=== PATIENT | male | born 1955 | race Caucasian/White ===

== ENCOUNTER → 2020-11-28 10:29 | Outpatient (BNVA) | payer OTHER, MEDICARE, SELFPAY | PROVIDERS: PCP Internal Medicine; Visit Provider Surgery ==

== ENCOUNTER 2020-12-06 06:10 | Day surgery (SDC) | payer OTHER, MEDICARE, SELFPAY ==
[2020-12-05 09:29] VITALS: BMI 23.3
[2020-12-06 06:26] VITALS: BP 146/80; PULSE 68; RESP 16; TEMP 37.2; O2SAT 98
[2020-12-06] MEDS: Lactated Ringers 1,000 ML 100 ML IVCONT (06:44)
--- NOTE | 2020-12-06 06:59 | MHC.SHP ---
Pre-Procedural Eval Section A The patient is an INPATIENT: No Changes since office visit: Yes Patient answered all questions; No Cold of Flu in the past 2 weeks, No New Medical Problems and No Changes in Medication The History & Physical has been completed within 30 days and I have reviewed it.: Yes Section B Chief Complaint: Right Inguinal hernia Allergies: Allergies Allergy/AdvReac Type Severity Reaction Status Date / Time mold Allergy Unknown UNKNOWN Verified 12/06/20 06:15 DUST Allergy Unknown UNKNOWN Uncoded 11/28/20 10:44 Environmental Allergy Unknown UNKNOWN ( Uncoded 11/28/20 10:44 SEASONAL ) Plan Diagnosis/Plan: Unchanged I have reviewed the history and physical and performed a pertinent physical examination on my patient. No changes have occurred unless specified.
--- NOTE | 2020-12-06 07:05 | HO.ANESPROP2 ---
FORMERLY [facility], 1928–1983 Active Problems Active Problems: All Active Problems (Updated 11/28/20 @ 10:55 by Gerson Morejon MD) Right inguinal hernia (Acute) Past Medical History Medical History High cholesterol Hypertension Incontinence Prostate cancer Skin cancer Family History Family History Father History of colon cancer Mother History of liver cancer Surgical History Surgical History History of prostatectomy History of wisdom tooth extraction Social History Social History Smoking Status: Never smoker Use of substances other than those prescribed or required for medical reasons: No Advance Directives: No Advance Directives Information Provided: Yes Meds Allergies Allergy/AdvReac Type Severity Reaction Status Date / Time mold Allergy Unknown UNKNOWN Verified 12/06/20 06:15 DUST Allergy Unknown UNKNOWN Uncoded 11/28/20 10:44 Environmental Allergy Unknown UNKNOWN ( Uncoded 11/28/20 10:44 SEASONAL ) Active Medications: Current Medications Generic Name Dose Route Start Last Admin Trade Name Freq PRN Reason Stop Dose Admin Lactated Ringer's 1,000 mls @ 100 mls/hr 12/06/20 06:15 12/06/20 06:44 Lr IVCONT 100 mls/hr .Q10H CHEMA Administration Home Medications Medication Instructions Recorded Confirmed Last Taken Type carvedilol 25 mg tablet 25 mg PO BID 11/28/20 12/06/20 05:30 History imipramine HCl 25 mg tablet 25 mg PO BEDTIME 11/28/20 Unknown History simvastatin 20 mg tablet 20 mg PO BEDTIME 11/28/20 Unknown History Exam Exam Date and Time: December 06, 2020 0705 Height,Weight and Vital Signs: Height 6 ft Weight 77.9 kg Last Vital Signs Temp 98.9 F 12/06/20 06:26 Pulse 68 12/06/20 06:26 Resp 16 12/06/20 06:26 BP 146/80 H 12/06/20 06:26 Pulse Ox 98 12/06/20 06:26 Airway Mallampati Class: II TM Dist: >3cm Neck ROM: Full Assessment and Plan Assessment Anesthesia Assessment: Anesthesia Plan Discussed and Chart Reviewed Final Anesthetic Review NPO: Yes ASA Class: II Final Preanesthetic Review: No Changes in Pt Med Stat, Meds/Allgs Chart Reviewed, Consent Obtained/Reviewed and Anes Risks/Benef Reviewed Patient Risk: Low Procedure Risk: Low Assessment/Block/Sedation in SS: Assess/Block/Sedation-SS Anesthetic Plan Anesthetic Plan: GA Disposition: Standard PACU
--- NOTE | 2020-12-06 08:25 | W.PM.OPN ---
Operative Note Operative Note Date of Service: 12/06/20 Narrative: Preoperative diagnosis: Right inguinal hernia Postoperative diagnosis: Same Procedure: Repair of right inguinal hernia Surgeon: Gerson Morejon MD Steel Erector Apprentice: Renee Black PA-C Anesthesia: General LMA Indications for procedure: 65-year-old male patient presenting with a lump in the right groin which increases in size with lifting and straining and is causing some mild discomfort. On examination the patient has a reducible right inguinal hernia with minimal discomfort. Operative findings:. Patient was found to have a moderate-size indirect hernia on the right side containing small bowel. The sac extended into the scrotum. This was repaired using a large PHS mesh Specimen: Hernia sac, lipoma of the cord Estimated blood loss: 5 mL Complications: None Procedure details: Patient was brought to the OR and placed in a supine position. After administering general anesthesia the patient's abdomen was prepped with ChloraPrep and draped in a sterile fashion. A surgical time-out was called the consent confirmed. Patient received preoperative antibiotics and Venodyne boots were in place. Local anesthesia consisting of 0.5% Sensorcaine with epinephrine was infiltrated over the right inguinal ligament. Incision was then made in oblique fashion over the inguinal ligament. This carried out through subcutaneous tissue past Meredith's fashion up to the external oblique aponeurosis. Additional local was infiltrated below the external oblique aponeurosis. This was then incised with a scalpel wide with the Metzenbaum scissors. Spermatic cord was then dissected free from the surrounding inguinal canal and retracted using a Stephany drain. A direct hernia was identified close to the internal ring. This was dissected free from the spermatic cord. Fibers of the cremasteric muscle were then and a large indirect sac identified. This was dissected down to the internal ring. The sac was then opened and the contents reduced. A 0 Polysorb suture was then placed into the base of the sac at the internal ring and tied off. The sac distal to this was excised using Metzenbaum scissors and sent to pathology for further examination. Additional sac extending into the scrotum was also dissected free and sent as a additional specimen. A small lipoma of the cord was also excised and sent to pathology along with the specimen. Attention was then directed to the direct space which was divided between Allis clamps. The preperitoneal space was then created. This was opened further using an open Ray-Karma sponge. A large PHS mesh was then obtained. The circular underlay was placed into the preperitoneal space and deployed. The overlay was then secured to the pubic tubercle conjoined tendon shelving edge of the inguinal ligament using interrupted 0 Polysorb sutures. A slit was made in the mesh and the mesh were wrapped around the spermatic cord at the internal ring. This was then secured to the shelving edge of the inguinal ligament using the 0 Polysorb suture. This was felt to be loose enough to allow the tip of an index finger to pass. Wounds were checked for hemostasis. Wounds were irrigated with saline solution and suctioned dry. External oblique aponeurosis was then closed using a running 2 0 Polysorb suture. Meredith's fascia and dermis reapproximated using interrupted 3-0 Polysorb sutures. Skin was then closed using a running subcuticular 4-0 Polysorb suture. Steri-Strips 2 x 2 gauze and Tegaderm were then applied. The patient tolerated the procedure well. Sponge, instrument, needle counts reported as correct. Patient was transferred to PACU in stable condition.
[2020-12-06 08:33] VITALS: BP 110/64; PULSE 63; RESP 16; TEMP 36.3; O2SAT 99
[2020-12-06 08:38] VITALS: BP 111/64; PULSE 63; RESP 16; O2SAT 97
[2020-12-06 08:43] VITALS: BP 122/63; PULSE 67; RESP 16; O2SAT 100
[2020-12-06] MEDS: oxyCODONE HCl Immed Release 5 MG TABLET PO (08:47)
[2020-12-06 08:48] VITALS: BP 126/77; PULSE 65; RESP 16; O2SAT 97
[2020-12-06] MEDS: Acetaminophen 325 MG TABLET 650 MG PO (08:48)
[2020-12-06 09:03] VITALS: BP 124/73; PULSE 61; RESP 18; TEMP 36.7; O2SAT 99
--- NOTE | 2020-12-06 10:19 | PM.OP ---
Brief Operative Note Date of Service: 12/06/20 Pre-op diagnosis: Right inguinal hernia Post-op diagnosis: same Procedure: Repair of right inguinal hernia with mesh Implants: PHS large Surgeon: Gerson Morejon MD Anesthesia: SHAHABA Property Management Assistant: Renee Black Estimated blood loss (mL): 5 Pathology: other (hernia sac) Condition: stable Disposition: PACU
== END 2020-12-06 10:00 | disposition home or self-care (01) ==
PROVIDERS: PCP Internal Medicine; Visit Provider Surgery
PROC: (CPT 49650; principal; 2020-12-06 07:30)
DX: K40.90 Unilateral inguinal hernia, without obstruction or gangrene, not specified as recurrent (principal); D17.6 Benign lipomatous neoplasm of spermatic cord; I10 Essential (primary) hypertension; Z79.899 Other long term (current) drug therapy; Z85.46 Personal history of malignant neoplasm of prostate; Z90.79 Acquired absence of other genital organ(s); Z85.828 Personal history of other malignant neoplasm of skin
CPT/HCPCS: 49650; 88302; 88304; C1781; J0690; J1100; J1885; J2405; J3010

== ENCOUNTER → 2020-12-18 08:57 | Outpatient (BNVA) | payer OTHER, MEDICARE, SELFPAY | PROVIDERS: PCP Internal Medicine; Visit Provider Surgery ==

== ENCOUNTER → 2021-01-15 09:13 | Outpatient (BNVA) | payer OTHER, MEDICARE, SELFPAY | PROVIDERS: PCP Internal Medicine; Visit Provider Surgery ==

== ENCOUNTER 2022-03-11 07:43 | Day surgery (SDC) | payer MEDICARE, SELFPAY ==
[2022-03-05 14:01] VITALS: BMI 23.2
--- NOTE | 2022-03-10 09:34 | P.CONAN_ITS ---
Documented by User: Yodit Rios NP 03/10/22 09:34 HPI - Anesthesia Eval Consult details Narrative: 66yo F Colonoscopy [facility] Past Medical History Medical History High cholesterol Hypertension Incontinence Prostate cancer Skin cancer Family History Family History Father History of colon cancer Mother History of liver cancer Surgical History Surgical History H/O right inguinal hernia repair History of prostatectomy History of wisdom tooth extraction Social History Social History Patient Tobacco Use Status: Never used Tobacco Are you DNR?: No Advance Directives: No Advance Directives Information Provided: Yes Meds Allergies Allergy/AdvReac Type Severity Reaction Status Date / Time mold Allergy Unknown UNKNOWN Verified 12/06/20 06:15 DUST Allergy Unknown UNKNOWN Uncoded 11/28/20 10:44 Environmental Allergy Unknown UNKNOWN ( Uncoded 11/28/20 10:44 SEASONAL ) Home Medications Medication Instructions Recorded Confirmed Last Taken Type carvedilol 25 mg tablet 25 mg PO BID 11/28/20 01/15/21 03/11/22 History imipramine HCl 25 mg tablet 25 mg PO BEDTIME 11/28/20 01/15/21 Unknown History simvastatin 20 mg tablet 20 mg PO BEDTIME 11/28/20 01/15/21 Unknown History losartan 25 mg tablet 1 tab PO DAILY 03/11/22 03/11/22 03/10/22 History Exam Exam Date and Time: March 10, 2022 0934 Height,Weight and Vital Signs: Height 5 ft 11.5 in Weight 76.657 kg Assessment and Plan Assessment Anesthesia Assessment: Chart Reviewed Documented by User: Elida Acosta MD 03/11/22 09:19 [facility] Past Medical History Medical History High cholesterol Hypertension Incontinence Prostate cancer Skin cancer Family History Family History Father History of colon cancer Mother History of liver cancer Family history of problems with anesthesia: No Surgical History Surgical History H/O right inguinal hernia repair History of prostatectomy History of wisdom tooth extraction History of Problems with Anesthesia: No Social History Social History Patient Tobacco Use Status: Never used Tobacco Are you DNR?: No Advance Directives: No Advance Directives Information Provided: Yes Meds Allergies Allergy/AdvReac Type Severity Reaction Status Date / Time mold Allergy Unknown UNKNOWN Verified 12/06/20 06:15 DUST Allergy Unknown UNKNOWN Uncoded 11/28/20 10:44 Environmental Allergy Unknown UNKNOWN ( Uncoded 11/28/20 10:44 SEASONAL ) Home Medications Medication Instructions Recorded Confirmed Last Taken Type carvedilol 25 mg tablet 25 mg PO BID 11/28/20 01/15/21 03/11/22 History imipramine HCl 25 mg tablet 25 mg PO BEDTIME 11/28/20 01/15/21 Unknown History simvastatin 20 mg tablet 20 mg PO BEDTIME 11/28/20 01/15/21 Unknown History losartan 25 mg tablet 1 tab PO DAILY 03/11/22 03/11/22 03/10/22 History Exam Height,Weight and Vital Signs: Height 5 ft 11.5 in Weight 76.657 kg Vital Signs Temp Pulse Resp BP Pulse Ox 03/11/22 07:50 97.8 F 69 17 131/74 98 Airway Mallampati Class: II TM Dist: >3cm Neck ROM: Full Heart: RRR Lungs: CTAB Assessment and Plan Assessment Anesthesia Assessment: Anesthesia Plan Discussed Final Anesthetic Review Family History of Problems with Anesthesia: No History of Problems with Anesthesia: No NPO: Yes ASA Class: II Final Preanesthetic Review: No Changes in Pt Med Stat, Meds/Allgs Chart Reviewed, Consent Obtained/Reviewed and Anes Risks/Benef Reviewed Patient Risk: Low Procedure Risk: Low Assessment/Block/Sedation in SS: Assess/Block/Sedation-SS Anesthetic Plan Anesthetic Plan: MAC: Disposition: Standard PACU
[2022-03-11 07:50] VITALS: BP 131/74; PULSE 69; RESP 17; TEMP 36.6; O2SAT 98
[2022-03-11] MEDS: Lactated Ringers 1,000 ML 100 ML IVCONT (08:08)
--- NOTE | 2022-03-11 08:52 | MHC.SHP ---
Pre-Procedural Eval Section A Date of Service: 03/11/22 Section B Chief Complaint: screening Details of Present Illness: see H&P no changes Relevant Family History (Specify if Yes): Yes Relevant Social History: None Present Medications: see Short Stay Collaborative assessment Medical History: No relevant PMH History of Previous Operations: No relevant previous surgery Allergies: Allergies Allergy/AdvReac Type Severity Reaction Status Date / Time mold Allergy Unknown UNKNOWN Verified 12/06/20 06:15 DUST Allergy Unknown UNKNOWN Uncoded 11/28/20 10:44 Environmental Allergy Unknown UNKNOWN ( Uncoded 11/28/20 10:44 SEASONAL ) Review of Systems Sugical H&P ROS: Negative: Constitution, Cardiovascular, Respiratory, Neurological, Psychiatric, Hem-Onc, Allergic/Immunologic, Gastrointestinal, Genitourinary, Musculoskeletal, Integumentary, Endocrine and Eyes/Ears/Nose/Throat Exam Surgical H&P Exam: Normal: HEENT, Normal: Heart, Normal: Lungs, Normal: Extremities, Normal: Abdomen, Normal: Skin and Normal: Neurological Plan Diagnosis/Plan: Unchanged I have reviewed the history and physical and performed a pertinent physical examination on my patient. No changes have occurred unless specified.
--- NOTE | 2022-03-11 09:36 | PM.OP ---
Brief Operative Note Date of Service: 03/11/22 Pre-op diagnosis: screening Post-op diagnosis: same (colon polyps) Procedure: colonoscopy Surgeon: Steffen Stahl Anesthesia: MAC Was an Aircraft Instrument Tester used for this Procedure?: No Estimated blood loss (mL): 2 Pathology: other (see req) Condition: stable Disposition: PACU
[2022-03-11 09:37] VITALS: BP 91/55; PULSE 62; RESP 14; TEMP 37.1; O2SAT 98
[2022-03-11 09:52] VITALS: BP 118/65; PULSE 62; RESP 16; TEMP 37; O2SAT 97
--- NOTE | 2022-03-11 13:00 | OP_ITS ---
SURGEON: Steffen Stahl MD INDICATIONS: Colon cancer screening and prior history of adenomatous colon polyps. PREOPERATIVE DIAGNOSIS: POSTOPERATIVE DIAGNOSIS: PROCEDURE PERFORMED: Colonoscopy to the terminal ileum with biopsy and snare polypectomy. ESTIMATED BLOOD LOSS: COMPLICATIONS: ANESTHESIA: ASSISTANTS: SPECIMENS: MEDICATIONS: Monitored anesthesia care. DESCRIPTION OF PROCEDURE: History and physical were performed. The risks and benefits of the procedure were explained to the patient. Informed consent was obtained. The patient was placed in the left lateral decubitus position. A digital rectal exam was performed and was found to be normal. The Olympus pediatric video colonoscope was introduced into the rectum and advanced to the cecum without difficulty. The cecum was identified by transillumination, palpation, and identification of ileocecal valve. Examination was performed. The scope was removed. He tolerated the procedure well and was transferred to recovery area in stable condition. FINDINGS: The terminal ileum was examined and appeared normal. The visualized colonic mucosa was normal. There was some liquid stool left, which was washed and suctioned. This limited sensitivity examination for detection of small polyps, particularly in the sigmoid. Multiple polyps were removed. The 1st was located at the right colon measuring less than 5 mm and was removed with biopsy forceps. The 2nd was located at 70 cm measuring approximately 8 mm and was removed with a hot snare. The 3rd was located at 40 cm and was less than 5 mm. This was removed with biopsy forceps. The final polyp at 20 cm was snared, but could not be recovered due to technical reasons. Retroflexed examination showed small internal hemorrhoids. There was moderate sigmoid diverticulosis. IMPRESSION: Colon polyps. RECOMMENDATION: Follow up the biopsy results. MD DAVID Bazzi/MACYL / [id number]
== END 2022-03-11 10:26 | disposition home or self-care (01) ==
PROVIDERS: PCP Internal Medicine; Visit Provider Internal Medicine Gastroenterology
PROC: 0DJD8ZZ Inspection of Lower Intestinal Tract, Via Natural or Artificial Opening Endoscopic (ICD-10-PCS; CPT 45378; principal; 2022-03-11 08:50)
DX: Z12.11 Encounter for screening for malignant neoplasm of colon (principal); Z86.010 Personal history of colon polyps; Z80.0 Family history of malignant neoplasm of digestive organs; D12.2 Benign neoplasm of ascending colon; D12.4 Benign neoplasm of descending colon; D12.5 Benign neoplasm of sigmoid colon; K57.30 Diverticulosis of large intestine without perforation or abscess without bleeding; K64.8 Other hemorrhoids; I10 Essential (primary) hypertension; E78.00 Pure hypercholesterolemia, unspecified; Z79.899 Other long term (current) drug therapy; Z85.46 Personal history of malignant neoplasm of prostate; Z87.19 Personal history of other diseases of the digestive system
CPT/HCPCS: 45385; 45380; 88305

== ENCOUNTER 2022-06-30 10:17 | Emergency (ER) | payer MEDICARE, SELFPAY ==
--- NOTE | ~2022-06-30 | XR_ITS ---
EXAMINATION: XR CHEST CLINICAL INFORMATION: Cough. COMPARISON: Most recent chest radiograph dated 12/01/2010. TECHNIQUE: Frontal view of the chest was obtained. FINDINGS: No airspace consolidation. No pleural effusion or pneumothorax. Stable cardiac mediastinal silhouette. No acute osseous abnormality. XR/XR chest 1V IMPRESSION: Unremarkable examination.
--- NOTE | 2022-06-30 10:29 | ECG_ITS ---
Test Reason : WEAKNESS Blood Pressure : / mmHG Vent. Rate : 054 BPM Atrial Rate : 054 BPM P-R Int : 162 ms QRS Dur : 088 ms QT Int : 440 ms P-R-T Axes : 040 028 044 degrees QTc Int : 417 ms Sinus bradycardia Otherwise normal ECG When compared with ECG of 02-DEC-2010 07:19, Vent. rate has decreased BY [address] no longer elevated in Inferior leads ST no longer elevated in Lateral leads Nonspecific T wave abnormality no longer evident in Lateral leads Referred By: Adali Kimble Electronically Signed By:MARGUERITE HOLBROOK
--- NOTE | 2022-06-30 10:31 | ED_ITS ---
HPI - Weakness General Chief complaint: General Medical Stated complaint: HYPOTENSION S/P ACUPUNCTURE Time Seen by Provider: 06/30/22 10:30 Source: patient Mode of arrival: EMS Limitations: no limitations History of Present Illness HPI Narrative: 67 yo male with hx of HTN, HLD, prior prostate cancer s/p prostatectomy was undergoing acupuncture today when he became weak and felt dizzy. Acupuncture was being done on upper chest and wrists. This was not his first time and this has never happened before. He ate breakfast this AM. He notes that he has been feeling URI symptoms with a cough no treatments undergone but has been dealing with it for about a week - he is vaccinated for COVID. EMS notes patient was la michelle flat and seemed fine when he went to stand became weak and dizzy - their BP was 80/60. MD Complaint: generalized weakness Onset (ago): minute(s) (just prior to arrival ) Duration: improved (when he lays flat if he stands become symptomatic) Location: generalized Migration: none Severity: moderate Quality: dull Relieving factors: rest Exacerbating factors: movement and other (standing up) Context: recent illness Associated symptoms: other (cough x 1 week) Related Data Home Medications Medication Instructions Recorded Confirmed carvedilol 25 mg tablet 25 mg PO BID 11/28/20 01/15/21 imipramine HCl 25 mg tablet 25 mg PO BEDTIME 11/28/20 01/15/21 simvastatin 20 mg tablet 20 mg PO BEDTIME 11/28/20 01/15/21 losartan 25 mg tablet 1 tab PO DAILY 03/11/22 03/11/22 Allergies Allergy/AdvReac Type Severity Reaction Status Date / Time mold Allergy Unknown UNKNOWN Verified 12/06/20 06:15 DUST Allergy Unknown UNKNOWN Uncoded 11/28/20 10:44 Environmental Allergy Unknown UNKNOWN ( Uncoded 11/28/20 10:44 SEASONAL ) Review of Systems Review of Systems: Constitutional : No Fever, No Chills, No Fatigue ENT/Mouth : No sore throat, No Rhinorrhea Eyes: No Eye Pain, No Swelling, No Redness Cardiovascular : No Chest Pain, No SOB, No Dyspnea on Exertion Respiratory : pos Cough, No Sputum Gastrointestinal : No Nausea, No Vomiting, No Diarrhea, No abdominal Pain Genitourinary : No Dysuria, No Urinary Frequency, No Hematuria, Musculoskeletal : No joint pain, No Myalgias, No Joint Swelling Skin : No Skin Lesions, No rash Neuro : No Weakness, No Numbness, pos Dizziness, no Headache Psych : No Anxiety/Panic, No Depression Heme/Lymph: No Bruising, No Bleeding,No Lymphadenopathy Endocrine : No Polyuria, No Polydipsia All other systems reviewed and are negative [facility] Past Medical History Attestation statement: The following information was validated with the patient. Medical History High cholesterol Hypertension Incontinence Prostate cancer Skin cancer Surgical History H/O right inguinal hernia repair History of prostatectomy History of wisdom tooth extraction Family History Family History Father History of colon cancer Mother History of liver cancer Social History Social History Patient Tobacco Use Status: Never used Tobacco Advance Directives: No Advance Directives Information Provided: Yes Physical Exam Vital Signs: Vital Signs: Last Vital Signs Temp 97.6 F 06/30/22 10:47 Pulse 62 06/30/22 12:23 Resp 16 06/30/22 12:23 BP 135/69 06/30/22 12:23 Pulse Ox 97 06/30/22 12:23 O2 Del Method 06/30/22 12:23 BMI result Body Mass Index 23.7 Appearance: Alert. Oriented X3. No acute distress. Eyes: Pupils equal, round and reactive to light. ENT: Pharynx normal. Neck: Normal inspection. Neck supple. CVS: Normal heart rate and rhythm. Pulses normal. Respiratory: No respiratory distress. Breath sounds normal. Abdomen: Soft and non-tender. Skin: Skin warm and dry. Normal skin color. Normal skin turgor. Extremities: No lower extremity edema. No calf ttp Neuro: Oriented X 3. No motor deficit. No sensory deficit. Course Course Course Narrative: repeat trop flat, hydrated, VS improved. stable for DC< CXR negative MDM - Weakness MDM Narrative Medical decision making narrative: 67 yo male with hx of HTN, HLD, prior prostate cancer s/p prostatectomy here with c/o weakness and feeling dizzy when he stands up - he has no other neurologic complaints. He reports a recent URI without any medical interventions. No CP/SOB or GIB reported symptoms. At this time labs, orthostatic VS, EKG and 2L of IVF ordered. Could be orthostatic from dehydration - he denies new changes in medications. Lab Data Result diagrams: 06/30/22 11:25 06/30/22 13:45 Labs: Lab Results 06/30/22 06/30/22 06/30/22 Range/Units 11:25 11:25 11:25 WBC 13.5 H (4.8-10.8) X10*3/uL RBC 4.34 L (4.60-5.80) X10*6/uL Hgb 14.1 (14.0-18.0) g/dl Hct 41.7 L (42.0-52.0) % MCV 96.1 (80.0-98.0) fL MCH 32.5 (27.0-33.0) pg MCHC 33.8 (31.0-36.0) g/dl RDW 12.9 (11.0-16.0) % Plt Count 294 (160-400) X10*3/uL MPV 8.3 L (9.4-12.4) fL Immature Gran % (Auto) 0.6 H (0.0-0.4) % Neut % (Auto) 72.4 (45-73) % Lymph % (Auto) 12.5 L (20-40) % Stanton % (Auto) 11.7 H (2-11) % Eos % (Auto) 2.1 (0-4) % Baso % (Auto) 0.7 (0-2) % Lymph # (Auto) 1.7 (1.2-4.9) X10*3/uL Stanton # (Auto) 1.6 H (0.1-1.2) X10*3/uL Eos # (Auto) 0.3 (0.0-0.4) X10*3/uL Baso # (Auto) 0.1 (0.0-0.2) X10*3/uL Abs Immat Gran (auto) 0.08 H (0.00-0.03) X10*3/uL Absolute Neuts (auto) 9.8 H (2.0-8.3) x10*3/uL Absolute Nucleated RBC 0.000 (0.0-0.012) X10*3/uL Nucleated RBC % (auto) 0.0 (0.0-0.2) /100WBC Smear Tech's Comments VERIFIED Sodium (135-145) mmol/L Potassium (3.3-5.1) mmol/L Chloride (96-108) mmol/L Carbon Dioxide (22-29) mmol/L Anion Gap (12-20) BUN (9-16) mg/dL Creatinine (0.5-1.4) mg/dL Estim Creat Clear Calc Estimated GFR Random Glucose (60-115) mg/dL Lactic Acid 1.2 (0.5-2.0) mmol/L Calcium (8.4-10.2) mg/dL Magnesium (1.6-2.6) mg/dL Total Bilirubin (0.0-1.0) mg/dL Direct Bilirubin (0.0-0.5) mg/dL AST (5-37) U/L ALT (0-40) U/L Alkaline Phosphatase (39-117) U/L Troponin I High Sens 3.5 (<3.5-35.0) ng/L Total Protein (6.5-8.0) g/dL Albumin (3.5-5.0) g/dL Lipase (8-78) U/L COVID-19 (RODRIGUEZ) (Negative) COVID-19 Clin Com 06/30/22 06/30/22 06/30/22 Range/Units 11:25 13:45 13:45 WBC (4.8-10.8) X10*3/uL RBC (4.60-5.80) X10*6/uL Hgb (14.0-18.0) g/dl Hct (42.0-52.0) % MCV (80.0-98.0) fL MCH (27.0-33.0) pg MCHC (31.0-36.0) g/dl RDW (11.0-16.0) % Plt Count (160-400) X10*3/uL MPV (9.4-12.4) fL Immature Gran % (Auto) (0.0-0.4) % Neut % (Auto) (45-73) % Lymph % (Auto) (20-40) % Stanton % (Auto) (2-11) % Eos % (Auto) (0-4) % Baso % (Auto) (0-2) % Lymph # (Auto) (1.2-4.9) X10*3/uL Stanton # (Auto) (0.1-1.2) X10*3/uL Eos # (Auto) (0.0-0.4) X10*3/uL Baso # (Auto) (0.0-0.2) X10*3/uL Abs Immat Gran (auto) (0.00-0.03) X10*3/uL Absolute Neuts (auto) (2.0-8.3) x10*3/uL Absolute Nucleated RBC (0.0-0.012) X10*3/uL Nucleated RBC % (auto) (0.0-0.2) /100WBC Smear Tech's Comments Sodium 139 (135-145) mmol/L Potassium 5.1 (3.3-5.1) mmol/L Chloride 107 (96-108) mmol/L Carbon Dioxide 20 L (22-29) mmol/L Anion Gap 17 (12-20) BUN 17 H (9-16) mg/dL Creatinine 1.35 (0.5-1.4) mg/dL Estim Creat Clear Calc 57.4 Estimated GFR 53 Random Glucose 164 H (60-115) mg/dL Lactic Acid (0.5-2.0) mmol/L Calcium 8.9 (8.4-10.2) mg/dL Magnesium 2.1 (1.6-2.6) mg/dL Total Bilirubin 0.6 (0.0-1.0) mg/dL Direct Bilirubin 0.3 (0.0-0.5) mg/dL AST 32 (5-37) U/L ALT 40 (0-40) U/L Alkaline Phosphatase 68 (39-117) U/L Troponin I High Sens 3.6 (<3.5-35.0) ng/L Total Protein 6.5 (6.5-8.0) g/dL Albumin 3.8 (3.5-5.0) g/dL Lipase 15 (8-78) U/L COVID-19 (RODRIGUEZ) Negative (Negative) COVID-19 Clin Com See Note ECG Data Attestation: I personally reviewed and interpreted this ECG as follows: ECG interpretation date: 06/30/22 ECG interpretation time: 12:07 Interpretation: Rate: 54 Rhythm: NSR [place]: normal Normal P waves. Normal FLACO. Normal QRS complex. ST T wave : normal no JAMIE qTC: normal prior studies: no acute ischemia The study has been interpreted contemporaneously by me. . Discharge Plan Discharge Clinical Impression: Near syncope, Orthostatic hypotension Patient Disposition: Home, Self-Care Instructions: Hypotension (ED), Near Syncope (ED) Additional Instructions: return to ED for any worsening symptoms or concerns drink plenty of fluids heart tests x 2 negative given IVF in ED no pneumonia on chest xray, COVID test negative take it easy and rest over the next 24 hours no blood pressure medications over the next 24 hours. Prescriptions: No Action losartan 25 mg tablet 1 tab PO DAILY simvastatin 20 mg tablet 20 mg PO BEDTIME carvedilol 25 mg tablet 25 mg PO BID imipramine HCl 25 mg tablet 25 mg PO BEDTIME Referrals: Jovon Youssef MD [Primary Care Provider] - 2 days (if not better)
[2022-06-30 10:47] VITALS: BP 107/58; BP 88/68; PULSE 57; PULSE 60; RESP 11; TEMP 36.4; O2SAT 100; BMI 23.7
[2022-06-30] MEDS: 0.9 % Sodium Chloride 1,000 ML 999 ML IVCONT ×2 (11:30)
[2022-06-30 11:35] LABS: Basophils Absolute Auto 0.1 X10*3/uL (0.0-0.2); Basophils Percent Auto 0.7 % (0-2); Eosinophils Absolute Auto 0.3 X10*3/uL (0.0-0.4); Eosinophils Percent Auto 2.1 % (0-4); Hematocrit 41.7 % (42.0-52.0); Hemoglobin 14.1 g/dl (14.0-18.0); Imm Gran Abs Auto 0.08 X10*3/uL (0.00-0.03); Imm Gran Pct Auto 0.6 % (0.0-0.4); Lymphocytes Absolute Auto 1.7 X10*3/uL (1.2-4.9); Lymphocytes Percent Auto 12.5 % (20-40); MANUAL DIFF FLAG SCAN; Mean Corpuscular HGB Conc 33.8 g/dl (31.0-36.0); Mean Corpuscular Hemoglobin 32.5 pg (27.0-33.0); Mean Corpuscular Volume 96.1 fL (80.0-98.0); Mean Platelet Volume 8.3 fL (9.4-12.4); Monocytes Absolute Auto 1.6 X10*3/uL (0.1-1.2); Monocytes Percent Auto 11.7 % (2-11); Neutrophils Absolute Auto 9.8 x10*3/uL (2.0-8.3); Neutrophils Percent Auto 72.4 % (45-73); Platelet Count 294 X10*3/uL (160-400); Red Blood Count 4.34 X10*6/uL (4.60-5.80); Red Cell Distribution Width 12.9 % (11.0-16.0); SCAN SMEAR FLAG 1; White Blood Count 13.5 X10*3/uL (4.8-10.8)
[2022-06-30 11:39] LABS: Lactic Acid 1.2 mmol/L (0.5-2.0)
[2022-06-30 11:50] LABS: Troponin-I High Sensitivity 3.5 ng/L (<3.5-35.0)
[2022-06-30 11:56] LABS: COVID-19 Test Negative (Negative); IDNOW Serial# 9DB6401D
[2022-06-30 11:59] LABS: SLIDE REVIEW VERIFIED
[2022-06-30 12:18] VITALS: BP 123/59; PULSE 57
[2022-06-30 12:19] VITALS: BP 114/69; PULSE 55
[2022-06-30 12:20] VITALS: BP 132/72; PULSE 58
[2022-06-30 12:23] VITALS: BP 135/69; PULSE 62; RESP 16; O2SAT 97
[2022-06-30 14:07] LABS: Alanine Aminotransferase 40 U/L (0-40); Albumin Level 3.8 g/dL (3.5-5.0); Alkaline Phosphatase 68 U/L (39-117); Anion Gap 17 (12-20); Aspartate Amino Transferase 32 U/L (5-37); Bilirubin Direct 0.3 mg/dL (0.0-0.5); Bilirubin Total 0.6 mg/dL (0.0-1.0); Blood Urea Nitrogen 17 mg/dL (9-16); Calcium 8.9 mg/dL (8.4-10.2); Carbon Dioxide 20 mmol/L (22-29); Chloride 107 mmol/L (96-108); Creatinine Clr Calc Pharmacy 57.4; Estimated Glomerular Filt Rate 53; Glucose Random 164 mg/dL (60-115); Lipase 15 U/L (8-78); Magnesium 2.1 mg/dL (1.6-2.6); Potassium 5.1 mmol/L (3.3-5.1); Sodium 139 mmol/L (135-145); Total Protein 6.5 g/dL (6.5-8.0)
[2022-06-30 14:12] LABS: Troponin-I High Sensitivity 3.6 ng/L (<3.5-35.0)
[2022-06-30 15:06] VITALS: BP 120/68; PULSE 58; RESP 16; O2SAT 97
== END 2022-06-30 15:28 | disposition home or self-care (01) ==
PROVIDERS: Emergency Provider Emergency Medicine; PCP Internal Medicine
DX: R55 Syncope and collapse (principal); I95.1 Orthostatic hypotension; I10 Essential (primary) hypertension; E78.00 Pure hypercholesterolemia, unspecified; Z79.899 Other long term (current) drug therapy; Z79.02 Long term (current) use of antithrombotics/antiplatelets; Z20.822 Contact with and (suspected) exposure to COVID-19
CPT/HCPCS: 36415; 71045; 80048; 80076; 83605; 83690; 83735; 84484; 85025; 87635; 93005; 96360; 96361; 99284

== ENCOUNTER → 2025-05-01 14:45 | Outpatient (REF) | payer MEDICARE, SELFPAY ==
--- NOTE | 2025-05-01 14:48 | CA_ITS ---
Transthoracic Echocardiogram Patient (Last, First, Middle): Gerson Baig F Gender: Male Date of : 1955 Age: 69 Procedure Date: 05/01/2025 Procedure Type: Transthoracic Echocardiogram Location: OP Height: 182. cm Weight: 77.11 kg BSA: 1.98 m2 Heart Rate: 54 bpm BP: 120 / 70 mmHg Wood Heel Back Liner: MILES Referring MD: Jovon Youssef MD Home Care Administrator: Justin Guevara MD Symptoms: HTN I10 MCP I42.9 Study Quality: Adequate ECG Rhythm: Bradycardia Conclusions: - 1. Normal LV ejection fraction of 60-65% with grade 1 diastolic dysfunction 2. Normal cardiac valvular Dopplers 3. Normal RV systolic pressure 4. No gross pericardial effusion Findings Left Ventricle Normal left ventricular size, thickness, and systolic function. The visually estimated ejection fraction is between 60-65%. Spectral Doppler is indicative of an impaired relaxation filling pattern. E/E prime ratio is <8, consistent with normal filling pressures. Right Ventricle Normal right ventricular cavity size and systolic function. Atria Both atria are normal in size. There is no evidence of interatrial shunt. Aortic Valve Normal aortic valve structure and function. There is no aortic valve stenosis. There is no aortic valve regurgitation. Mitral Valve Normal mitral valve structure and function. There is trace mitral valve regurgitation. There is no mitral valve stenosis. Pulmonic Valve The pulmonic valve is likely normal. There is trace pulmonic valve regurgitation. Tricuspid Valve Normal tricuspid valve structure. There is trace tricuspid valve regurgitation. The right ventricular systolic pressure is normal. The right ventricular systolic pressure is 21 mmHg. Normal right atrial pressure. There is no evidence of pulmonary hypertension. Great Vessels All visible segments of the aorta are normal in size. The pulmonary artery was not well visualized. Venous The inferior vena cava is normal in size and collapses greater than 50% with inspiration. Pericardium/Pleural There is no evidence of pericardial effusion. Measurements 2D Linear Measurements IVSd: 0.93 0.6-0.9/0.6-1.0 cm LVIDd: 4.06 3.9-5.3/4.2-5.9 cm LVIDd Index: 2.05 2.4-3.2/2.2-3.1 cm/m2 LVIDs: 2.38 2.0-3.6 cm LVPWd: 0.84 0.7-1.1 cm LA Diam: 3.20 2.7-3.8/3.0-4.0 cm LAIDs Index: 1.62 1.5-2.3 cm/m2 LV Mass: 136.38 67-162/88-224 g LV Mass Index: 68.88 43-95/49-115 g/m2 LVOT Diam: 2.20 3.0+(-)1.3 cm 2D Systolic Function EF 4C: 61.70 >55% EF 2C: 64.00 >55% EF BiP: 61.80 >55% Mitral Valve MV Pk E: 0.62 MV PK A: 0.64 MV Decel Time: 296.00 E/A: 1.00 E'Lateral: 6.74 E'Medial: 5.33 E/E' Med: 11.60 E/E' Lat: 9.20 PHT: 87.00 MVA PHT: 2.53 Decel Edmunds: 2.09 Aortic Valve AoV Pk Zhang: 1.17 AoV Mn Zhang: 0.81 AoV VTI: 0.26 AoV Pk Grad: 5.00 Aov Mn Grad: 3.00 JIMMIE Cont.VTI: 3.27 LVOT LVOT Pk Zhang: 1.07 LVOT Mn Zhang: 0.72 LVOT VTI: 0.22 LVOT Pk Grad: 5.00 LVOT Mn Grad: 3.00 LVOT Diam: 2.20 LVOT Area: 3.80 Diastolic Function MV Pk E: 0.62 MV Pk A: 0.64 E/A: 1.00 E'Medial: 5.33 E/E' Med: 11.60 E' Laterial: 6.74 E/E' Lat: 9.20 Right Ventricle TAPSE (mm): 22.80 TVS' Zhang: 10.40 Tricuspid Valve TR Pk Zhang: 2.11 TR Pk Grad: 18.00 RA Press: 3.00 RVSP: 21.00 Great Vessels Aorta Sinus of Valsalva: 3.50 2.0-3.5 cm Ao Asc: 3.40 2.1-3.4 cm Ao Arch: 2.40 Pulmonary Valve PV Pk Zhang: 0.96 Peak PV Grad: 4.00 Updated in Other Vendor System with Status of Final Justin Guevara MD electronically signed on 05/02/2025 8:59:20 AM with status of Final
--- OUTSIDE RECORDS SUMMARY | 2025-05-01 15:18 | XMS_ITS | Encounter Summary ---
Author Organization [facility] Address [address] [place] [address] [place] [id number] Phone Care Team Providers Care Trucking Manager Name Role Phone Jovon Youssef MD Primary Care Provider [phone] Lincoln Spain MD Unavailable Unavailable Camryn Bradford MD Unavailable [phone] Antonio Melissa MD Unavailable [phone] Encounter Details Date Type Department Care Team (Late st Contact Info) Description 05/04/2023 Telephone [facility] [place] Internal Medicine [address] [place], [place] [id number] Jovon Youssef MD [address] [place] [address] [email or web address] Social History Tobacco Use Types Packs/Day Years Used Date Smoking Tobacco: Never Smokeless Tobacco: Never Alcohol Use Standard Drinks/Week Comments Yes 1 (1 standard drink = 0.6 oz pur e alcohol) Education Answer Date Recorded Are you interested in more education? Not on yajaira e 01/29/2023 Are you concerned about learning? Not on file 01/29/2023 No 01/29/2023 No 01/29/2023 Digital Access Answer Date Recorded No 03/02/2023 No 03/02/2023 Reliable internet access at home? Not on file 03/02/2023 Device with a working camera? Not on file Sex and Gender Information Value Date Recorded Sex Assigned at Not on file Legal Sex Male 9:57 PM EDT Gender Identity Not on file Sexual Orientation Not on file documented as of this encounter Plan of Treatment Upcoming Encounters Date Type Department Care Team (Late st Contact Info) Description 09/25/2025 9:30 AM EST Office Visit [facility] Internal Medicine [address] [place] [address] Jovon Youssef MD [address] [place] [address] [email or web address] documented as of this encounter Visit Diagnoses Not on filedocumented in this encounter Additional Health Concerns Assessment Noted Time PHQ-2 Depression Total Score: 0 03/11/20 23 3:16 PM EDT documented as of this encounter Care Teams Trucking Manager Relationship Specialty Start Date End Date Jovon Youssef MD [address] [place] [address] [email or web address] PCP - General 10/08/17 Lincoln Spain MD [id number] [address] Dermatology 12/05/19 [place] [address] [place] [address] General Surgery 03/06/20 Antonio Melissa MD [address] [place] [phone] [email or web address] 09/06/20 documented as of this encounter Additional Source Comments The information contained in this document represents components of the legal health record. It is not the complete legal health record.[facility]
== END ==
LOC: HO.CARD 14:45
PROVIDERS: PCP Internal Medicine; Visit Provider Internal Medicine
DX: I10 Essential (primary) hypertension (principal); I42.9 Cardiomyopathy, unspecified
CPT/HCPCS: 93306

== ENCOUNTER → 2025-05-01 14:48 | Outpatient (BNV) | payer MEDICARE, SELFPAY | PROVIDERS: PCP Internal Medicine; Visit Provider Internal Medicine Cardiovascular Disease | DX: I42.9 Cardiomyopathy, unspecified (principal); I10 Essential (primary) hypertension | CPT/HCPCS: 93306 ==

== ENCOUNTER 2025-07-18 09:54 | Day surgery (SDC) | payer MEDICARE, SELFPAY ==
[2025-07-14 06:55] VITALS: BMI 23.8
[2025-07-18 10:17] VITALS: BP 126/69; PULSE 64; RESP 16; TEMP 36.9; O2SAT 97
[2025-07-18] MEDS: Lactated Ringers 1,000 ML 100 ML IVCONT (10:23)
--- NOTE | 2025-07-18 10:28 | HO.ANESPROP2 ---
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 Unable to reach patient by phone for any further info - no [facility], [facility], or [facility] records. [facility] Past Medical History Medical History Diverticulitis Myocarditis Incontinence High cholesterol Hypertension Prostate cancer Skin cancer Family History Family History Father History of colon cancer Mother History of liver cancer Family history of problems with anesthesia: No Surgical History Surgical History History of surgery on lower extremity H/O colonoscopy H/O right inguinal hernia repair (~2020) History of wisdom tooth extraction History of prostatectomy (~2000) History of Problems with Anesthesia: No Social History Social History Are you a primary spiritual care coordinator to a significant other at home: No Do you presently have visiting nurse or other home services: No Comment: medicated with oxycodone in PACU Patient Tobacco Use Status: Never used Tobacco Second Hand Smoke Exposure: No Use of substances other than those prescribed or required for medical reasons: No Have you been hit, kicked, punched, or otherwise hurt by someone within the past year? If so, by whom?: No Are you DNR?: No Advance Directives: No Advance Directives Information Provided: Yes Advance Directives on File: No Poor oral hygiene: No Meds Allergies Allergy/AdvReac Type Severity Reaction Status Date / Time mold Allergy Unknown UNKNOWN Verified 12/06/20 06:15 DUST Allergy Unknown UNKNOWN Uncoded 11/28/20 10:44 Environmental Allergy Unknown UNKNOWN ( Uncoded 11/28/20 10:44 SEASONAL ) Home Medications ?Medication ?Instructions ?Recorded ?Confirmed ?Last Taken ?Type carvedilol 25 mg tablet 25 mg PO BID 11/28/20 07/14/25 07/18/25 History imipramine HCl 25 mg tablet 25 mg PO BEDTIME 11/28/20 07/14/25 Unknown History simvastatin 20 mg tablet 20 mg PO BEDTIME 11/28/20 07/14/25 Unknown History ascorbic acid (vitamin C) 500 mg 500 mg PO DAILY 07/14/25 07/14/25 Unknown History tablet (Vitamin C) cholecalciferol (vitamin D3) 25 25 mcg PO DAILY 07/14/25 07/14/25 Unknown History mcg (1,000 unit) capsule (Vitamin D3) coenzyme Q10 30 mg capsule (Co 30 mg PO DAILY 07/14/25 07/14/25 Unknown History Q-10) magnesium citrate-potassium 1 tab PO DAILY 07/14/25 07/14/25 Unknown History citrate ER 7.5 mEq tablet,extended release multivitamin 1 tab PO DAILY 07/14/25 07/14/25 Unknown History Exam Height,Weight and Vital Signs: Height 5 ft 11.5 in Weight 78.471 kg Assessment and Plan Assessment Anesthesia Assessment: Chart Reviewed Final Anesthetic Review Family History of Problems with Anesthesia: No History of Problems with Anesthesia: No Documented by User: Arlette Briones DO 07/18/25 10:33 HPI - Anesthesia Eval Consult details Narrative: 70yo M for Colonoscopy 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 Patient followed up with cardiology for a short time and then was cleared. [facility] Past Medical History Medical History Diverticulitis Myocarditis Incontinence High cholesterol Hypertension Prostate cancer Skin cancer Family History Family History Father History of colon cancer Mother History of liver cancer Family history of problems with anesthesia: No Surgical History Surgical History History of surgery on lower extremity H/O colonoscopy H/O right inguinal hernia repair (~2020) History of wisdom tooth extraction History of prostatectomy (~2000) History of Problems with Anesthesia: No Social History Social History Are you a primary spiritual care coordinator to a significant other at home: No Do you presently have visiting nurse or other home services: No Comment: medicated with oxycodone in PACU Patient Tobacco Use Status: Never used Tobacco Second Hand Smoke Exposure: No Use of substances other than those prescribed or required for medical reasons: No Have you been hit, kicked, punched, or otherwise hurt by someone within the past year? If so, by whom?: No Are you DNR?: No Advance Directives: No Advance Directives Information Provided: Yes Advance Directives on File: No Poor oral hygiene: No Meds Allergies Allergy/AdvReac Type Severity Reaction Status Date / Time mold Allergy Unknown UNKNOWN Verified 12/06/20 06:15 DUST Allergy Unknown UNKNOWN Uncoded 11/28/20 10:44 Environmental Allergy Unknown UNKNOWN ( Uncoded 11/28/20 10:44 SEASONAL ) Home Medications ?Medication ?Instructions ?Recorded ?Confirmed ?Last Taken ?Type carvedilol 25 mg tablet 25 mg PO BID 11/28/20 07/14/25 07/18/25 History imipramine HCl 25 mg tablet 25 mg PO BEDTIME 11/28/20 07/14/25 Unknown History simvastatin 20 mg tablet 20 mg PO BEDTIME 11/28/20 07/14/25 Unknown History ascorbic acid (vitamin C) 500 mg 500 mg PO DAILY 07/14/25 07/14/25 Unknown History tablet (Vitamin C) cholecalciferol (vitamin D3) 25 25 mcg PO DAILY 07/14/25 07/14/25 Unknown History mcg (1,000 unit) capsule (Vitamin D3) coenzyme Q10 30 mg capsule (Co 30 mg PO DAILY 07/14/25 07/14/25 Unknown History Q-10) magnesium citrate-potassium 1 tab PO DAILY 07/14/25 07/14/25 Unknown History citrate ER 7.5 mEq tablet,extended release multivitamin 1 tab PO DAILY 07/14/25 07/14/25 Unknown History Exam Exam Date and Time: 07/18/25 1025 Height,Weight and Vital Signs: Height 5 ft 11.5 in Weight 78.471 kg Vital Signs Temperature 98.4 F 07/18/25 10:17 Pulse Rate 64 07/18/25 10:17 Respiratory Rate 16 07/18/25 10:17 Blood Pressure 126/69 07/18/25 10:17 Pulse Oximetry 97 07/18/25 10:17 Oxygen Delivery Method Room Air 07/18/25 10:17 Temperature 98.4 F 07/18/25 10:17 Pulse Rate 64 07/18/25 10:17 Respiratory Rate 16 07/18/25 10:17 Blood Pressure 126/69 07/18/25 10:17 Pulse Oximetry 97 07/18/25 10:17 Oxygen Delivery Method Room Air 07/18/25 10:17 Airway Mallampati Class: I TM Dist: >3cm Loose/Missing/Broken Teeth: No (patient denies any loose or broken teeth) Heart: S1S2 Lungs: CTAB Assessment and Plan Assessment Anesthesia Assessment: Anesthesia Plan Discussed and Chart Reviewed Final Anesthetic Review Family History of Problems with Anesthesia: No History of Problems with Anesthesia: No NPO: Yes ASA Class: II Final Preanesthetic Review: No Changes in Pt Med Stat, Meds/Allgs Chart Reviewed, Consent Obtained/Reviewed and Anes Risks/Benef Reviewed Patient Risk: Low Procedure Risk: Low Anesthetic Plan Anesthetic Plan: MAC: and Agree w/ Assess. and Plan Disposition: Standard PACU
--- NOTE | 2025-07-18 10:50 | MHC.SHP ---
Pre-Procedural Eval Section A - 24 Hr Update-Section A only Date of Service: 07/18/25 The patient is an INPATIENT: No Changes since office visit: No Cold of Flu in the past 2 weeks, No New Medical Problems, No Changes in Medication and No Patient answered all questions The patient has been examined within 24 hours of the surgical procedure. The History & Physical has been completed within 30 days and I have reviewed it.: Yes Section B - Complete if H&P > 30 days Chief Complaint: screening Allergies: Allergies Allergy/AdvReac Type Severity Reaction Status Date / Time mold Allergy Unknown UNKNOWN Verified 12/06/20 06:15 DUST Allergy Unknown UNKNOWN Uncoded 11/28/20 10:44 Environmental Allergy Unknown UNKNOWN ( Uncoded 11/28/20 10:44 SEASONAL ) Plan I have reviewed the history and physical and performed a pertinent physical examination on my patient. No changes have occurred unless specified. Time Spent With Patient Time: Total time managing care of this patient today ____ minutes.
[2025-07-18 11:34] VITALS: BP 105/55; PULSE 67; RESP 16; TEMP 36.4; O2SAT 97
[2025-07-18 11:53] VITALS: BP 112/64; PULSE 57; RESP 18; TEMP 36.4; O2SAT 99
--- NOTE | 2025-07-18 13:44 | OP_ITS ---
DATE OF SERVICE: 07/18/2025 SURGEON: Steffen Stahl MD INDICATIONS: Personal history of colon polyps PREOPERATIVE DIAGNOSIS: POSTOPERATIVE DIAGNOSIS: PROCEDURE PERFORMED: Colonoscopy to the terminal ileum with biopsy and snare polypectomy. ESTIMATED BLOOD LOSS: COMPLICATIONS: ANESTHESIA: Monitored anesthesia care. ASSISTANTS: SPECIMENS: DESCRIPTION OF PROCEDURE: A history and physical was performed. The risks and benefits of the procedure were explained to the patient. Informed consent was obtained. The patient was placed in the left lateral decubitus position. A digital rectal exam showed some decrease in sphincter tone. The Olympus pediatric video colonoscope was introduced into the rectum and advanced to the cecum. The cecum was identified by transillumination, palpation, and identification of ileocecal valve. Examination was performed. The scope was removed. He tolerated the procedure well and was returned to the recovery area in stable condition. FINDINGS: The terminal ileum was examined and appeared normal. The visualized colonic mucosa was normal. The quality of the prep was good. There was moderate sigmoid diverticulosis. At 30 cm was a 5 mm polyp, which was biopsied and then removed with a cold snare. No other polyps were identified. Retroflexed examination showed some internal hemorrhoids. IMPRESSION: Colon polyp Follow up the biopsy results. MD DAVID Bazzi/MACYL / [id number] MTDD
== END 2025-07-18 13:03 | disposition home or self-care (01) ==
PROVIDERS: PCP Internal Medicine; Visit Provider Internal Medicine Gastroenterology
PROC: 0DJD8ZZ Inspection of Lower Intestinal Tract, Via Natural or Artificial Opening Endoscopic (ICD-10-PCS; CPT 45378; principal; 2025-07-18 11:20)
DX: Z12.11 Encounter for screening for malignant neoplasm of colon (principal); Z80.0 Family history of malignant neoplasm of digestive organs; Z86.0101 Personal history of adenomatous and serrated colon polyps; D12.5 Benign neoplasm of sigmoid colon; K57.30 Diverticulosis of large intestine without perforation or abscess without bleeding; Z87.19 Personal history of other diseases of the digestive system; K64.8 Other hemorrhoids; K59.00 Constipation, unspecified; C61 Malignant neoplasm of prostate; I51.4 Myocarditis, unspecified; I11.9 Hypertensive heart disease without heart failure; E78.00 Pure hypercholesterolemia, unspecified; Z85.828 Personal history of other malignant neoplasm of skin; Z79.899 Other long term (current) drug therapy; Z98.890 Other specified postprocedural states
CPT/HCPCS: 45385; 45380; 88305; J2704